=== PATIENT | male | born 1990 | race Caucasian/White ===

== ENCOUNTER 2019-03-09 22:29 | Emergency (ER) | payer BC ==
[2019-03-09 22:48] VITALS: BP 133/86; PULSE 85; TEMP 98.3; BMI 28.1
--- NOTE | 2019-03-11 12:09 | EKG ---
Test Reason : Blood Pressure : / mmHG Vent. Rate : 080 BPM Atrial Rate : 080 BPM P-R Int : 168 ms QRS Dur : 086 ms QT Int : 350 ms P-R-T Axes : 052 070 034 degrees QTc Int : 403 ms POOR DATA QUALITY, INTERPRETATION MAY BE ADVERSELY AFFECTED NORMAL SINUS RHYTHM WITH SINUS ARRHYTHMIA NORMAL ECG NO PREVIOUS ECGS AVAILABLE Confirmed by ELENA MORRIS MD ([id number]) on 03/11/2019 12:09:03 PM Referred By: Confirmed By:ELENA MORRIS MD
== END 2019-03-10 00:30 | disposition left against medical advice (07) ==
LOC: JER 22:29
DX: Z53.21 Procedure and treatment not carried out due to patient leaving prior to being seen by health care provider (principal)
CPT/HCPCS: 93005; 93010; 99281-25